=== PATIENT | male | born 1955 | race Caucasian/White ===

== ENCOUNTER → 2018-12-06 | Outpatient (CLI) | payer OTHER ==
--- NOTE | 2018-12-06 17:36 | RAD ---
3 view study of both knees Clinical indications: Chronic bilateral knee pain Right knee: No acute fracture or dislocation or lytic process is evident. There is mild joint space narrowing and mild spurring of the medial tibial femoral joint compartment. There is mild degenerative spurring of the patellofemoral joint compartment without joint space narrowing. Small right knee joint effusion is seen. There is a metallic linear foreign body or staple within the soft tissues just lateral to the proximal fibula. IMPRESSION: Mild primary degenerative osteoarthritis. Left knee: No acute fracture or dislocation or osteolytic process evident. There is mild degenerative joint space narrowing and moderate spurring of the medial tibiofemoral joint compartment of the left knee. There is mild spurring without joint space during of the patellofemoral joint compartment. Small left knee joint effusion is seen. Small radiopaque loose bodies are evident within the left knee. IMPRESSION: Primary degenerative osteoarthritis. Electronically signed by: Yash Talavera MD (12/06/2018 5:33 PM) [id number]
== END | disposition home or self-care (01) ==
LOC: RAD 12:30
PROVIDERS: ATTEND General Practice
DX: M17.0 Bilateral primary osteoarthritis of knee (principal); M23.42 Loose body in knee, left knee; M25.462 Effusion, left knee; M25.461 Effusion, right knee; M76.892 Other specified enthesopathies of left lower limb, excluding foot; M76.891 Other specified enthesopathies of right lower limb, excluding foot
CPT/HCPCS: 73562